=== PATIENT | female | born 1990 | race American Indian/Alaskan Native ===

== ENCOUNTER 2017-05-06 14:49 | Emergency (ER) | payer SELFPAY ==
[2017-05-06 15:36] LABS: Basophils % (Auto) 0.9 % (0.0-1.8); Eosinophils % (Auto) 1.3 % (0.0-4.3); Hematocrit 41.1 % (30.3-42.9); Hemoglobin 13.5 gm/dl (10.1-14.3); Mean Corpuscular HGB Conc 33 % (30-34); Mean Corpuscular Hemoglobin 28 pg (28-32); Mean Corpuscular Volume 85 fl (79-97); Platelet Count 385 K/mm3 (140-440); Red Blood Count 4.86 M/mm3 (3.65-5.03); White Blood Count 6.3 K/mm3 (4.5-11.0)
[2017-05-06 15:56] LABS: Anion Gap 20 mmol/L; Blood Urea Nitrogen 5 mg/dL (7-17); Calcium 8.9 mg/dL (8.4-10.2); Carbon Dioxide 22 mmol/L (22-30); Chloride 98.6 mmol/L (98-107); Glucose 94 mg/dL (65-100); Potassium 3.6 mmol/L (3.6-5.0); Sodium 137 mmol/L (137-145)
[2017-05-06 16:44] LABS: Bilirubin,Urine NEG (Negative)
[2017-05-06 16:45] LABS: Blood,Urine NEG (Negative); Ketones,Urine 80 mg/dL (Negative); Leukocyte Esterase,Urine SM (Negative); Mucus,Urine 3+ /HPF; Nitrite,Urine NEG (Negative)
[2017-05-06] MEDS ORDERED: NACL 0.9% 1000 ML 1,000 ML IV ONE (20:34)
[2017-05-06] MEDS ORDERED: ZOFRAN IV ONE (20:34)
--- NOTE | 2017-05-06 20:40 | Emergency Department Report ---
HPI - General Chief Complaint: Syncope Time Seen by Provider: 05/06/17 20:26 - HPI HPI: Room 18 The patient is a 26-year-old female presented with a chief complaint of syncope. The patient states earlier this month 04/16/2017 all outside and the son she had a syncopal episode. Patient states she went home and drink plenty of water and felt better. Following the patient states she began to have nausea and this week the patient developed nausea and intractable vomiting. Patient states she is unable to hold down solids or liquids. Today while sitting down she states she had another brief syncopal episode. Patient denies chest pain, shortness breath or abdominal pain. Patient denies vaginal bleeding. Patient's last cycle occurred 03/14/2017 and she is normally regular Location: [see above] Duration: [see above] Quality: Nausea Severity: Moderate Modifying factors: [see above] Context: [see above] Mode of transportation: [not driving] ED Past Medical Hx - Past Medical History Hx Asthma: Yes Additional medical history: obesity - Surgical History Past Surgical History?: No - Family History Family history: no significant - Social History Smoking Status: Never Smoker Substance Use Type: None (denies illicit drug use) - Medications Home Medications: Home Medications Medication Instructions Recorded Confirmed Last Taken Type Ondansetron [Zofran ODT TAB] 8 mg PO Q8HR #30 tab.rapdis 05/06/17 Unknown Rx ED Review of Systems ROS: Stated complaint: NAUSEA/PASSED OUT Other details as noted in HPI Comment: All other systems reviewed and negative Constitutional: denies: chills, fever Eyes: denies: eye pain, eye discharge, vision change ENT: denies: ear pain, throat pain Respiratory: denies: cough, shortness of breath, wheezing Cardiovascular: denies: chest pain, palpitations Endocrine: no symptoms reported Gastrointestinal: nausea, vomiting. denies: abdominal pain, diarrhea Genitourinary: denies: urgency, dysuria, discharge Musculoskeletal: denies: back pain, joint swelling, arthralgia Skin: denies: rash, lesions Neurological: other (syncope). denies: headache, weakness, paresthesias Psychiatric: denies: anxiety, depression Hematological/Lymphatic: as per HPI Physical Exam - Physical Exam Vital Signs: Vital Signs 05/06/17 05/06/17 15:03 18:40 Temperature 98.3 F 98.4 F Pulse Rate 69 18 L Respiratory 17 18 Rate Blood Pressure 135/88 Blood Pressure 125/98 [Right] O2 Sat by Pulse 100 Oximetry Physical Exam: GENERAL: The patient is well-developed well-nourished female lying on stretcher not appearing to be in acute distress. [] HEENT: Normocephalic. Atraumatic. Extraocular motions are intact. Patient has moist mucous membranes. NECK: Supple. Trachea midline CHEST/LUNGS: Clear to auscultation. There is no respiratory distress noted. HEART/CARDIOVASCULAR: Regular. There is no tachycardia. There is no gallop rub or murmur. ABDOMEN: Abdomen is soft, nontender. Patient has normal bowel sounds. There is no abdominal distention. SKIN: There is no rash. There is no edema. There is no diaphoresis. NEURO: The patient is awake, alert, and oriented. The patient is cooperative. The patient has normal speech MUSCULOSKELETAL: There is no evidence of acute injury. ED Course Vital Signs 05/06/17 05/06/17 15:03 18:40 Temperature 98.3 F 98.4 F Pulse Rate 69 18 L Respiratory 17 18 Rate Blood Pressure 135/88 Blood Pressure 125/98 [Right] O2 Sat by Pulse 100 Oximetry - Reevaluation(s) Reevaluation #1: 05/06/17 22:03 Patient tolerating po ED Medical Decision Making - Lab Data Result diagrams: 05/06/17 15:23 05/06/17 15:23 Laboratory Tests 05/06/17 05/06/17 05/06/17 15:23 15:23 15:23 WBC 6.3 RBC 4.86 Hgb 13.5 Hct 41.1 MCV 85 MCH 28 MCHC 33 RDW 15.0 Plt Count 385 Lymph % (Auto) 31.6 Ness % (Auto) 7.5 H Eos % (Auto) 1.3 Baso % (Auto) 0.9 Lymph # 2.0 Ness # 0.5 Eos # 0.1 Baso # 0.1 Seg Neutrophils % 58.7 Seg Neutrophils # 3.7 Sodium 137 Potassium 3.6 Chloride 98.6 Carbon Dioxide 22 Anion Gap 20 BUN 5 L Creatinine 0.5 L Estimated GFR > 60 BUN/Creatinine Ratio 10.00 Glucose 94 Calcium 8.9 HCG, Qual Positive HCG, Quant Urine Color Urine Turbidity Urine pH Ur Specific [place] Urine Protein Urine Glucose (UA) Urine Ketones Urine Blood Urine Nitrite Urine Bilirubin Urine Urobilinogen Ur Leukocyte Esterase Urine WBC (Auto) Urine RBC (Auto) U Epithel Cells (Auto) Urine Mucus 05/06/17 05/06/17 19:16 Unknown WBC RBC Hgb Hct MCV MCH MCHC RDW Plt Count Lymph % (Auto) Ness % (Auto) Eos % (Auto) Baso % (Auto) Lymph # Ness # Eos # Baso # Seg Neutrophils % Seg Neutrophils # Sodium Potassium Chloride Carbon Dioxide Anion Gap BUN Creatinine Estimated GFR BUN/Creatinine Ratio Glucose Calcium HCG, Qual HCG, Quant 56699 H Urine Color Samantha Urine Turbidity Clear Urine pH 5.0 Ur Specific [place] 1.032 H Urine Protein 100 mg/dl Urine Glucose (UA) Neg Urine Ketones 80 Urine Blood Neg Urine Nitrite Neg Urine Bilirubin Neg Urine Urobilinogen 4.0 Ur Leukocyte Esterase Sm Urine WBC (Auto) 6.0 Urine RBC (Auto) 3.0 U Epithel Cells (Auto) 13.0 Urine Mucus 3+ - Radiology Data Radiology results: report reviewed (pelvic ultrasound), image reviewed (pelvic ultrasound) Pelvic ultrasound (read by radiologist)-single live intrauterine gestation at approximately 7 weeks 6 days. heart rate 163 bpm - Differential Diagnosis hyperemesis gravidarum, dehydration, , ectopic Critical care attestation.: If time is entered above; I have spent that time in minutes in the direct care of this critically ill patient, excluding procedure time. ED Disposition Clinical Impression: , Hyperemesis gravidarum, Dehydration Disposition: - TO HOME OR SELFCARE Is pt being admited?: No Does the pt Need Aspirin: No Condition: Stable Instructions: Hyperemesis Gravidarum (ED) Additional Instructions: Return to the emergency department immediately should you develop worsening symptoms, fever, inability to tolerate food or liquid or any other concerns. Prescriptions: Ondansetron [Zofran ODT TAB] 8 mg PO Q8HR #30 tab.rapdis Referrals: PRIMARY CAREMD [Primary Care Provider] - 3-5 Days EDDIE ARENAS MD [Staff Physician] - [facility] (Dr. Arenas is an [employer]. Please follow-up with her for further evaluation) Time of Disposition: 22:06
--- NOTE | 2017-05-06 20:57 | Ultrasound Report ---
FINAL REPORT PROCEDURE: US OB \T\lt; = 14 WEEKS FETUS TECHNIQUE: Real-time transabdominal sonography of the uterus, placenta, amniotic fluid, adnexa, and fetus was performed with image documentation. Measurements were obtained to determine age/size. M-mode Doppler was used to document heartbeat. CPT 33337 HISTORY: syncope, COMPARISON: No prior studies are available for comparison. FINDINGS: CRL: 15 mm, which corresponds to a gestational age of: 7 weeks, 6 days. Yolk Sac: Not seen Embryonic Cardiac Activity: Normal. 163 beats per minute Gestational Sac: Normal. Amniotic fluid: Normal. Cervix: Normal. Right Ovary: Normal. Left Ovary: Normal. Estimated delivery date: Normal. Uterus and adnexa: Normal. IMPRESSION: Single live intrauterine gestation at approximately 7 weeks 6 days. EDC by US December 17, 2017
[2017-05-06 21:06] VITALS: BP 128/60
--- NOTE | 2017-05-06 21:11 | Ultrasound Report ---
FINAL REPORT PROCEDURE: US OB TRANSVAGINAL TECHNIQUE: Real-time transvaginal sonography of the uterus, placenta, amniotic fluid, adnexa, and fetus was performed with image documentation. Measurements were obtained to determine age/size. M-mode Doppler was used to document heartbeat. CPT 17412 HISTORY: HISTORY: syncope, COMPARISON: FINDINGS: FINDINGS: CRL: 15 mm, which corresponds to a gestational age of: 7 weeks, 6 days. Yolk Sac: Not seen Embryonic Cardiac Activity: Normal. 163 beats per minute Gestational Sac: Normal. Amniotic fluid: Normal. Cervix: Normal. Right Ovary: Normal. Left Ovary: Normal. Estimated delivery date: December 17, 2017. Uterus and adnexa: Normal. IMPRESSION: Single live intrauterine gestation at approximately 7 weeks 6 days. EDC by US December 17, 2017
== END 2017-05-06 23:05 | disposition home or self-care (01) ==
LOC: ED 14:49
DX: O21.0 Mild hyperemesis gravidarum (principal); E86.0 Dehydration; J45.909 Unspecified asthma, uncomplicated; Z3A.01 Less than 8 weeks gestation of pregnancy
CPT/HCPCS: 36415; 76801; 76817; 80048; 81001; 84702; 84703; 85025; 93005; 93010; 96361; 96374; 99284; J2405; J7030